=== PATIENT | female | born 1945 | race African-American/Black ===

== ENCOUNTER → 2016-05-04 | Outpatient (CLI) | payer MEDICARE, SELFPAY ==
[2015-09-24 11:50] VITALS: BP 121/66
[~2016-05-04] MED LIST: AMLO5TAB2 PO; ASPI81TA2 PO; FURO40TA4 PO; HYDR-971 PO; LOSA1TAB17 PO; METF10002 PO; METO50TA10 PO; POTA20TA82 PO; SIMV20TA3 PO; TAMO20TA PO
--- NOTE | 2016-05-04 13:50 | RAD ---
DATE: 05/04/2016. EXAM: DIGITAL DIAGNOSTIC RT. 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 COMPARISON: 08/04/2015. This study was interpreted with the benefit of Computerized Aided Detection (CAD). FINDINGS: The breast parenchyma heterogeneously dense, which could reduce sensitivity of mammography. There are changes of breast conservation therapy superiorly on the right. This results in a region of density or architectural distortion at the site of the previously noted calcifications. Skin thickening and interstitial edema are consistent with posttreatment change. No recurrent calcifications or masses are appreciated More inferiorly, there are pre-existing vascular and coarse calcifications that appear benign. There is no clearly suspicious finding. BI-RADS CATEGORY: 3 PROBABLY BENIGN FINDING(S)-SHORT INTERVAL FOLLOW-UP SUGGESTED. RECOMMENDED FOLLOW-UP: 6M 6 MONTH FOLLOW-UP. Return for bilateral surveillance mammography in 6 months. PQRS compliance statement: Patient information was entered into a reminder system with a target due date 11/01/2016 for the next mammogram. Mammography is a sensitive method for finding small breast cancers, but it does not detect them all and is not a substitute for careful clinical examination. A negative mammogram does not negate a clinically suspicious finding and should not result in delay in biopsying a clinically suspicious abnormality. "Our facility is accredited by the [employer] Mammography Program."
== END | disposition home or self-care (01) ==
LOC: MAMMO 13:10
PROVIDERS: ATTEND Surgery
DX: D05.11 Intraductal carcinoma in situ of right breast (principal)
CPT/HCPCS: G0206; 77065

== ENCOUNTER → 2016-10-18 | Outpatient (CLI) | payer BC ==
[2015-09-24 11:50] VITALS: BP 121/66
[~2016-10-18] MED LIST changes: +ASPI-630 PO; -ASPI81TA2 PO; +LOSA1TAB18 PO; +METF-620 PO; -METF10002 PO
--- NOTE | 2016-10-18 12:55 | RAD ---
DATE: 10/18/2016 EXAM: DIGITAL DIAGNOSTIC BILATERAL HISTORY: Right breast cancer. COMPARISON: 05/04/2016 and 08/04/2015 This study was interpreted with the benefit of Computerized Aided Detection (CAD). FINDINGS: Digital MLO and CC mammograms of both breasts were obtained. An additional true lateral digital mammogram of the right breast was obtained. Comparison studies are dated 05/04/2016 and 08/04/2015. The breast parenchyma is heterogeneous and dense which can obscure a lesion on mammography (breast density code C). An area of scarring is again seen involving the right breast, unchanged . Benign-appearing calcifications are seen scattered throughout both breasts. No dominant mass is seen. No malignant appearing calcification is noted. No new area of architectural distortion is seen. IMPRESSION: BI-RADS Category 2 benign findings. There is no mammographic evidence of malignancy. Routine yearly screening mammography is recommended for follow-up. BI-RADS CATEGORY: 2 BENIGN FINDING(S) RECOMMENDED FOLLOW-UP: 12M 12 MONTH FOLLOW-UP PQRS compliance statement: Patient information was entered into a reminder system with a target due date 10/18/2017 for the next mammogram. Mammography is a sensitive method for finding small breast cancers, but it does not detect them all and is not a substitute for careful clinical examination. A negative mammogram does not negate a clinically suspicious finding and should not result in delay in biopsying a clinically suspicious abnormality. "Our facility is accredited by the [employer] Mammography Program."
== END | disposition home or self-care (01) ==
LOC: MAMMO 12:05
PROVIDERS: ATTEND Surgery
DX: D05.11 Intraductal carcinoma in situ of right breast (principal)
CPT/HCPCS: G0204; 77066

== ENCOUNTER → 2017-10-18 | Outpatient (CLI) | payer BC | END | disposition home or self-care (01) | LOC: KCIC MAMMO 11:31 | DX: Z17.0 Estrogen receptor positive status [ER+] (principal); E11.9 Type 2 diabetes mellitus without complications; I50.9 Heart failure, unspecified; Z85.3 Personal history of malignant neoplasm of breast | CPT/HCPCS: 77066; G0279 ==

== ENCOUNTER → 2017-11-30 | Outpatient (CLI) | payer BC ==
[2015-09-24 11:50] VITALS: BP 121/66
[~2017-11-30] MED LIST changes: -AMLO5TAB2 PO; +AMLO5TAB7 PO; +CHOL2000 PO; -LOSA1TAB17 PO; -LOSA1TAB18 PO; +LOSA1TAB22 PO; +LOSA1TAB25 PO; -METF-620 PO; +METF10007 PO; -METO50TA10 PO; +METO50TA29 PO
--- NOTE | 2017-11-30 12:59 | KCIC ---
EXAM: Dual energy x-ray absorptiometry (DEXA). HISTORY: Postmenopausal female presents for osteoporosis screening. COMPARISON: None. TECHNIQUE: Dual energy x-ray absorptiometry of the lumbar spine and left was performed. Calculation of bone mineral density based on standard deviations above or below the expected young adult normal value (T-score) was completed. FINDINGS: The average bone mineral density in the 1st through 4th lumbar vertebrae is 1.369 g/cmxcm, corresponding with a T-score of 2.9. The average total bone mineral density in the left hip is 1.149 g/cmxcm, corresponding with a T-score of 1.7. IMPRESSION: Normal bone mineral density. Note: Definitions established by the World Health Organization: 1. Normal: T-score is -1.0 or above. 2. Osteopenia: T-score is between -1.0 and -2.5 . 3. Osteoporosis: T-score is -2.5 or below. Electronically signed by: Lauren Gaona MD (11/30/2017 12:55 PM) [place] [id number]
== END | disposition home or self-care (01) ==
LOC: KCIC DEXA 11:39
PROVIDERS: ATTEND Internal Medicine Hematology & Oncology
DX: Z13.820 Encounter for screening for osteoporosis (principal); E11.9 Type 2 diabetes mellitus without complications; E78.00 Pure hypercholesterolemia, unspecified; M19.90 Unspecified osteoarthritis, unspecified site; Z90.710 Acquired absence of both cervix and uterus; Z85.3 Personal history of malignant neoplasm of breast; Z78.0 Asymptomatic menopausal state
CPT/HCPCS: 77080